=== PATIENT | male | born 1950 ===

== ENCOUNTER 2022-10-05 16:25 | Emergency (ER) | payer MEDICARE, MEDICAID, SELFPAY ==
--- NOTE | 2022-10-05 16:31 | ED.GENADULT ---
HPI - General Adult General Chief complaint: General Medical Stated complaint: ran out of medication Time Seen by Provider: 10/05/22 18:06 Source: patient and family Mode of arrival: ambulatory Limitations: language barrier ([place]vian-speaking) History of Present Illness HPI narrative: Patient is a 72-year-old male with past medical history of hypertension, GERD, hyperlipidemia who presents to the emergency department for medication refill. Patient recently moved here from [place] 2 months ago, he had cataract surgery and reportedly was advised family that he should not be residing alone. Awaiting a primary care provider locally as he has recently obtained insurance. Patient has a 2 day supply of his medications left; hydralazine 100mg TID, omeprazole 20mg daily, clopidogrel 75mg daily, chlorthalidone 25mg daily, labetolol 100mg BID, pravastatin 20mg. Patient is without any physical complaints at this time Related Data Previous Rx's Medication Instructions Recorded chlorthalidone 25 mg tablet 25 mg PO DAILY #30 tabs 10/05/22 clopidogrel 75 mg tablet 75 mg PO DAILY #30 tabs 10/05/22 hydralazine 100 mg tablet 100 mg PO TID 30 days #90 tabs 10/05/22 labetalol 100 mg tablet 100 mg PO BID #60 tabs 10/05/22 omeprazole 20 mg capsule,delayed 20 mg PO DAILY #30 caps 10/05/22 release pravastatin 20 mg tablet 20 mg PO DAILY #30 tabs 10/05/22 Allergies Allergy/AdvReac Type Severity Reaction Status Date / Time Penicillins [PCN] Allergy Blurry Verified 10/05/22 16:34 Vision prednisone Allergy Blurry Verified 10/05/22 16:32 Vision seafood Allergy Anaphylaxis Verified 10/05/22 16:34 Review of Systems Review of Systems: Constitutional: No weight loss, fever, chills, weakness or fatigue. Skin: No rash or itching. Cardiovascular: No chest pain, chest pressure or chest discomfort. No palpitations or pedal edema. Respiratory: No shortness of breath, cough or sputum production. Gastrointestinal: No anorexia, nausea, vomiting or diarrhea. No abdominal pain or blood in stool. Genitourinary: No burning micturition. No urinary frequency or incontinence. Musculoskeletal: No muscle pain, back pain, joint pain or stiffness. Psychiatric: No depression or anxiety. Yes all other systems are reviewed and are negative PMFSH Past Medical History Attestation statement: The following information was validated with the patient. Source: old records reviewed Physical Exam ED Vital Signs: Vital Signs - 24 hr 10/05/22 16:35 Temperature 98.4 F Pulse Rate 73 Respiratory Rate 17 Blood Pressure 143/65 H Pulse Oximetry 97 Oxygen Delivery Method Room Air BMI result Body Mass Index 33.7 Appearance: Alert.?Oriented to person, place and time. No acute distress.?Normal affect. Eyes: Pupils equal, round and reactive to light.? Neck: Normal inspection.? Neck supple.?? CVS: Heart sounds normal. Normal heart rate and rhythm.? Pulses normal.?? Respiratory: No respiratory distress.? Lung sounds clear to auscultation bilaterally?? Abdomen: Soft and non-tender. Normoactive bowel sounds. No pulsatile mass.?? Skin: Skin warm and dry.? Normal skin color.? Extremities: No lower extremity edema.? No calf ttp? Neuro: Moves all extremities spontaneously. Sensation intact bilaterally. CN II-XII intact. No focal neuro deficits. Uses electric scooter for distance transport Medical Decision Making Medical Decision Making [facility] Narrative: Patient is a 72-year-old male with past medical history of hypertension, hyperlipidemia, GERD presenting to the emergency department with no physical complaints requesting medication refill for his chronic disease management as he recently moved to the area does not have a primary care provider as of yet. Physical examination is benign, obtain basic labs; CBC and BMP which are overall unremarkable. Normocytic anemia not meeting transfusion criteria, Elevated BUN at 35 and creatinine is 1.35, which is reportedly baseline for patient. Sent a 30 day supply of medications to pharmacy, provided with contact information for local primary care offices. All questions were answered. Stable for discharge. Differential Diagnosis Differential Diagnoses: The differential diagnosis associated with the presentation includes (Hypertension, hyperlipidemia, GERD, JOHAN, CKD) Lab Data [facility] Lab Attestation statement: I reviewed the patient's lab results. (As noted above) 10/05/22 16:59 10/05/22 16:59 Labs: Lab Results 10/05/22 10/05/22 Range/Units 16:59 16:59 WBC 7.6 (4.8-10.8) X10*3/uL RBC 3.61 L (4.60-5.80) X10*6/uL Hgb 10.8 L (14.0-18.0) g/dl Hct 33.5 L (42.0-52.0) % MCV 92.8 (80.0-98.0) fL MCH 29.9 (27.0-33.0) pg MCHC 32.2 (31.0-36.0) g/dl RDW 12.6 (11.0-16.0) % Plt Count 225 (160-400) X10*3/uL MPV 10.5 (9.4-12.4) fL Immature Gran % (Auto) 0.1 (0.0-0.4) % Neut % (Auto) 62.2 (45-73) % Lymph % (Auto) 23.8 (20-40) % [place] % (Auto) 9.9 (2-11) % Eos % (Auto) 3.6 (0-4) % Baso % (Auto) 0.4 (0-2) % Lymph # (Auto) 1.8 (1.2-4.9) X10*3/uL [place] # (Auto) 0.8 (0.1-1.2) X10*3/uL Eos # (Auto) 0.3 (0.0-0.4) X10*3/uL Baso # (Auto) 0.0 (0.0-0.2) X10*3/uL Abs Immat Gran (auto) 0.01 (0.00-0.03) X10*3/uL Absolute Neuts (auto) 4.7 (2.0-8.3) x10*3/uL Absolute Nucleated RBC 0.000 (0.0-0.012) X10*3/uL Nucleated RBC % (auto) 0.0 (0.0-0.2) /100WBC Sodium 144 (135-145) mmol/L Potassium 3.7 (3.3-5.1) mmol/L Chloride 109 H (96-108) mmol/L Carbon Dioxide 25 (22-29) mmol/L Anion Gap 14 (12-20) BUN 35 H (9-16) mg/dL Creatinine 1.35 (0.5-1.4) mg/dL Estim Creat Clear Calc 47.2 Estimated GFR 52 Random Glucose 137 H (60-115) mg/dL Calcium 9.1 (8.4-10.2) mg/dL Independent Historian Clinical information obtained from an independent historian. History obtained from or confirmed by: Other (Patient's daughter who confirms history) Prescription Management I considered prescription management with: Other (As noted in HPI and discharge) Chronic Conditions Patient?s care impacted by: Hypertension Discharge Plan Discharge Clinical Impression: Hypertension, GERD (gastroesophageal reflux disease), Hyperlipidemia Patient Disposition: Home, Self-Care Additional Instructions: You were seen in the emergency department today requesting medication refill for your medication management for chronic diseases. I have sent a 30 day supply to your pharmacy. Please be sure to follow up with new primary care provider locally. Return to emergency department with any worrisome symptoms or concerns. Prescriptions: New hydralazine 100 mg tablet 100 mg PO TID 30 Days Qty: 90 0RF omeprazole 20 mg capsule,delayed release(DR/EC) 20 mg PO DAILY Qty: 30 0RF clopidogrel 75 mg tablet 75 mg PO DAILY Qty: 30 0RF chlorthalidone 25 mg tablet 25 mg PO DAILY Qty: 30 0RF labetalol 100 mg tablet 100 mg PO BID Qty: 60 0RF pravastatin 20 mg tablet 20 mg PO DAILY Qty: 30 0RF Discharge Date/Time: 10/05/22 18:20
[2022-10-05 16:35] VITALS: BP 143/65; PULSE 73; RESP 17; TEMP 36.9; O2SAT 97; BMI 33.7
[2022-10-05 17:04] LABS: Basophils Percent Auto 0.4 % (0-2); Eosinophils Absolute Auto 0.3 X10*3/uL (0.0-0.4); Eosinophils Percent Auto 3.6 % (0-4); Hematocrit 33.5 % (42.0-52.0); Hemoglobin 10.8 g/dl (14.0-18.0); Imm Gran Abs Auto 0.01 X10*3/uL (0.00-0.03); Imm Gran Pct Auto 0.1 % (0.0-0.4); Lymphocytes Absolute Auto 1.8 X10*3/uL (1.2-4.9); Lymphocytes Percent Auto 23.8 % (20-40); MANUAL DIFF FLAG NO; Mean Corpuscular HGB Conc 32.2 g/dl (31.0-36.0); Mean Corpuscular Hemoglobin 29.9 pg (27.0-33.0); Mean Corpuscular Volume 92.8 fL (80.0-98.0); Mean Platelet Volume 10.5 fL (9.4-12.4); Monocytes Absolute Auto 0.8 X10*3/uL (0.1-1.2); Monocytes Percent Auto 9.9 % (2-11); Neutrophils Absolute Auto 4.7 x10*3/uL (2.0-8.3); Neutrophils Percent Auto 62.2 % (45-73); Platelet Count 225 X10*3/uL (160-400); Red Blood Count 3.61 X10*6/uL (4.60-5.80); Red Cell Distribution Width 12.6 % (11.0-16.0); White Blood Count 7.6 X10*3/uL (4.8-10.8)
[2022-10-05 17:16] LABS: Anion Gap 14 (12-20); Blood Urea Nitrogen 35 mg/dL (9-16); Calcium 9.1 mg/dL (8.4-10.2); Carbon Dioxide 25 mmol/L (22-29); Chloride 109 mmol/L (96-108); Creatinine Clr Calc Pharmacy 47.2; Estimated Glomerular Filt Rate 52; Glucose Random 137 mg/dL (60-115); Potassium 3.7 mmol/L (3.3-5.1); Sodium 144 mmol/L (135-145)
== END 2022-10-05 18:20 | disposition home or self-care (01) ==
PROVIDERS: Nurse Practitioner Family; Emergency Provider Emergency Medicine
DX: Z76.0 Encounter for issue of repeat prescription (principal); I10 Essential (primary) hypertension; K21.9 Gastro-esophageal reflux disease without esophagitis; E78.5 Hyperlipidemia, unspecified
CPT/HCPCS: 36415; 80048; 85025; 99282; 99283